=== PATIENT | male | born 1955 | race Caucasian/White ===

== ENCOUNTER 2016-11-28 11:41 | Inpatient (IN) | payer BC, OTHER ==
[2016-11-28] VITALS (11 sets, daily range): BP systolic 96–132; BP diastolic 50–68
[~2016-11-28] VITALS: Ht 176.5 cm; Wt 87.2 kg
[2016-11-28] MEDS ORDERED: ONDANSETRON 4 MG/2 ML (SDV) Z0FRAN ONE (11:42)
[2016-11-28] MEDS ORDERED: LIDOCAINE 1% INJ 20 ML (XYLOCAINE) VIAL ONE (11:56)
[2016-11-28] MEDS ORDERED: LIDOCAINE BOLUS 100 MG/5 ML (IMS) SYR ONE ×2 (11:58→12:06)
[2016-11-28] MEDS ORDERED: NS IV 1000 ML 1,000 ML IV ONE (12:02)
[2016-11-28] MEDS ORDERED: LORazepam INJ 2 MG/ML (ATIVAN) VIAL ONE (12:02)
[2016-11-28] MEDS ORDERED: OCTREOTIDE (FOR BOLUS) 50 MCG/ML SYR (SandoSTATIN) IVP STA (12:02)
[2016-11-28] MEDS ORDERED: ONDANSETRON 4 MG/2 ML (SDV) Z0FRAN IVP ONE (12:15)
[2016-11-28] MEDS ORDERED: PANTOPRAZOLE 40 MG/10 ML (PROTONIX) VIAL IV ONE (12:15)
[2016-11-28 12:33] LABS: BASOPHILS % (AUTO) 0 % (0-10); EOSINOPHILS # (AUTO) 0.2 10^3/uL (0.0-0.3); EOSINOPHILS % (AUTO) 1 % (0-10); LYMPHOCYTES # (AUTO) 3.1 X 10^3 (1.0-4.0); LYMPHOCYTES % (AUTO) 13 % (12-44); MEAN CORPUSCULAR HEMOGLOBIN 34 PG (25-34); MEAN CORPUSCULAR HGB CONC 33 G/DL (32-36); MEAN CORPUSCULAR VOLUME 101 FL (80-99); MEAN PLATELET VOLUME 9.1 FL (7.4-10.4); MONOCYTES # (AUTO) 2.3 X 10^3 (0.0-1.0); MONOCYTES % (AUTO) 10 % (0-12); NEUTROPHILS # (AUTO) 18.6 X 10^3 (1.8-7.8); NEUTROPHILS % (AUTO) 77 % (42-75); PLATELET COUNT 462 10^3/uL (130-400); RED CELL DISTRIBUTION WIDTH 12.6 % (10.0-14.5); WHITE BLOOD COUNT 24.2 10^3/uL (4.3-11.0)
--- NOTE | 2016-11-28 12:39 | Diagnostic Imaging Report ---
EXAMINATION: Chest radiograph, portable AP view. DATE: 11/28/2016 at 1227 hours. INDICATION: 61-year-old male, gastrointestinal bleed. COMPARISON: None. FINDINGS: There is a left-sided venous line with tip overlying the mid to lower SVC. Heart size and mediastinal contours are unremarkable. There is no identified pneumothorax. There is no large right pleural effusion. There is nonspecific left basilar airspace consolidation. IMPRESSION: 1. Nonspecific left basilar airspace consolidation which may relate to atelectasis, infiltrate, and/or small effusion. 2. Left-sided venous line overlying the mid to lower SVC. Dictated by: Dictated on workstation # [id number]
[2016-11-28 12:41] LABS: INR 1.1 (0.8-1.4); PROTHROMBIN TIME PATIENT 13.5 SEC (12.2-14.7)
[2016-11-28 12:52] LABS: ALANINE AMINOTRANSFERASE 32 U/L (0-55); ALBUMIN 2.6 GM/DL (3.2-4.5); ANION GAP 16 MMOL/L (5-14); ASPARTATE AMINO TRANSFERASE 32 U/L (5-34); BILIRUBIN,TOTAL 0.4 MG/DL (0.1-1.0); BLOOD UREA NITROGEN 26 MG/DL (7-18); BUN/CREATININE RATIO 26; CALCIUM 8.9 MG/DL (8.5-10.1); CARBON DIOXIDE 17 MMOL/L (21-32); CHLORIDE 103 MMOL/L (98-107); GFR ESTIMATED > 60; GLUCOSE 257 MG/DL (70-105); LIPASE 33 U/L (8-78); POTASSIUM 3.8 MMOL/L (3.6-5.0); SODIUM 136 MMOL/L (135-145); TOTAL PROTEIN 5.3 GM/DL (6.4-8.2)
[2016-11-28 12:57] LABS: BAND NEUTROPHILS 6 %; LYMPHOCYTES % (MANUAL) 10 %; NEUTROPHILS % (MANUAL) 76 %
--- NOTE | 2016-11-28 12:58 | ED GI ---
General Chief Complaint: Dizziness/Syncope Stated Complaint: upper GI bleed Nursing Triage Note: Upper GI bleed Source of Information: Patient, Spouse Exam Limitations: No Limitations History of Present Illness Time Seen By Provider: 11:47 Initial Comments 61-year-old male patient presents to the emergency department complains of vomiting blood. states patient had an upper endoscopy at [facility] on 11/25/16 and was found to have "perforated stomach ulcers and possible stomach cancer". Has not had follow-up for this. Patient had eggs and ham at 0800 today. Began vomiting blood at approximately one hour prior to arrival. initially reported several "seizures" at home. Denies a history of seizures. States patient initially "felt weird" and became unresponsive. Denies patient shaking but states patient did have a slight "twitch". Denies postictal period. Denies being incontinent of bowel or bladder. Timing/Duration: 1 Hour, Getting Worse Severity/Quality: Severe Activities at Onset: None Allergies and Home Medications Allergies Coded Allergies: No Known Drug Allergies (Unverified , 11/28/16) Review of Systems Constitutional: diaphoresis, No fever, malaise, weakness EENTM: No Symptoms Reported Respiratory: Denies Cough, Denies Shortness of Air Cardiovascular: Denies Chest Pain, Denies Edema, Lightheadedness, Syncope Gastrointestinal: See HPI, Denies Abdomen Distended, Denies Abdominal Pain, Denies Constipated, Denies Diarrhea, Nausea, Denies Rectal Bleeding, Vomiting, Other (hematemesis) Genitourinary: No Symptoms Reported Musculoskeletal: no symptoms reported Skin: no symptoms reported Psychiatric/Neurological: No Symptoms Reported Hematologic/Lymphatic: See HPI All Other Systems Reviewed Negative Unless Noted: Yes (Negative excepted noted.) Past Umzdijb-Frayxz-Cihcek Hx Patient Social History Alcohol Use: Occasionally Uses Recreational Drug Use: No Smoking Status: Former Smoker Recent Foreign Travel: No Contact w/Someone Who Travel: No Surgeries HX Surgeries: Yes (EGD done at [facility] on 11/25/16) Surgeries: Abdominal (splenectomy), Orthopedic (ankle surgery) Respiratory Hx Respiratory Disorders: No Cardiovascular Hx Cardiac Disorders: Yes Cardiac Disorders: High Cholesterol, Hypertension Neurological Hx Neurological Disorders: No Genitourinary Hx Genitourinary Disorders: No Gastrointestinal Hx Gastrointestinal Disorders: Yes (recent diagnosis of stomach ulcer and "possible stomach cancer") Musculoskeletal Hx Musculoskeletal Disorders: Yes (chronic pain) Endocrine Endocrine Disorders: Diabetes, Insulin dep Psychosocial Hx Psychiatric Problems: Yes Behavioral Health Disorders: Sleep Difficulties Reviewed Nursing Assessment Reviewed/Agree w Nursing PMH: Yes Family Medical History Significant Family History: No Pertinent Family Hx Physical Exam Vital Signs VS - Last 72 Hours, by Label 11/28/16 11:47 Temp 95.6 Pulse 116 Resp 8 B/P (MAP) 98/81 Pulse Ox 90 O2 Delivery Room Air Capillary Refill : General Appearance: WD/WN, mild distress HEENT: PERRL/EOMI, pharynx normal Neck: supple, normal inspection Respiratory: lungs clear, normal breath sounds, no respiratory distress Cardiovascular: no edema, no murmur, tachycardia Gastrointestinal: normal bowel sounds, non tender, soft, no organomegaly, No distended, other (well-healed lower midline scar consistent with past surgical history. vomiting bright red blood at the time of exam.) Extremities: no pedal edema, normal capillary refill Neurologic/Psychiatric: alert, normal mood/affect, oriented x 3 Skin: diaphoresis, pallor Lumen: triple Central Line Procedure: betadine prep, sterile drapes applied, sterile dressing applied Position: subclavian (L) Anesthesia: Lidocaine Volume Anesthetic (ccs): 3 Complications: none Post Position: sutured, good blood return, position confirmed w/ CXR Progress/Results/Core Measures Results/Orders Lab Results Laboratory Tests Test 11/28/16 12:23 Range/Units White Blood Count 24.2 H 4.3-11.0 10^3/uL Red Blood Count 2.40 L 4.35-5.85 10^6/uL Hemoglobin 8.1 L 13.3-17.7 G/DL Hematocrit 24 L 40-54 % Mean Corpuscular Volume 101 H 80-99 FL Mean Corpuscular Hemoglobin 34 25-34 PG Mean Corpuscular Hemoglobin Concent 33 32-36 G/DL Red Cell Distribution Width 12.6 10.0-14.5 % Platelet Count 462 H 130-400 10^3/uL Mean Platelet Volume 9.1 7.4-10.4 FL Neutrophils (%) (Auto) 77 H 42-75 % Lymphocytes (%) (Auto) 13 12-44 % Monocytes (%) (Auto) 10 0-12 % Eosinophils (%) (Auto) 1 0-10 % Basophils (%) (Auto) 0 0-10 % Neutrophils # (Auto) 18.6 H 1.8-7.8 X 10^3 Lymphocytes # (Auto) 3.1 1.0-4.0 X 10^3 Monocytes # (Auto) 2.3 H 0.0-1.0 X 10^3 Eosinophils # (Auto) 0.2 0.0-0.3 10^3/uL Basophils # (Auto) 0.0 0.0-0.1 10^3/uL Neutrophils % (Manual) 76 % Lymphocytes % (Manual) 10 % Monocytes % (Manual) 8 % Band Neutrophils 6 % Macrocytosis SLIGHT Prothrombin Time 13.5 12.2-14.7 SEC INR Comment 1.1 0.8-1.4 Activated Partial Thromboplast Time 28 24-35 SEC Sodium Level 136 135-145 MMOL/L Potassium Level 3.8 3.6-5.0 MMOL/L Chloride Level 103 98-107 MMOL/L Carbon Dioxide Level 17 L 21-32 MMOL/L Anion Gap 16 H 5-14 MMOL/L Blood Urea Nitrogen 26 H 7-18 MG/DL Creatinine 1.00 0.60-1.30 MG/DL Estimat Glomerular Filtration Rate > 60 BUN/Creatinine Ratio 26 Glucose Level 257 H 70-105 MG/DL Calcium Level 8.9 8.5-10.1 MG/DL Total Bilirubin 0.4 0.1-1.0 MG/DL Aspartate Amino Transf (AST/SGOT) 32 5-34 U/L Alanine Aminotransferase (ALT/SGPT) 32 0-55 U/L Alkaline Phosphatase 72 40-136 U/L Total Protein 5.3 L 6.4-8.2 GM/DL Albumin 2.6 L 3.2-4.5 GM/DL Lipase 33 8-78 U/L My Orders Orders - WILLAM BRUSH Cbc With Automated Diff (11/28/16 11:52) Comprehensive Metabolic Panel (11/28/16 11:52) Lipase (11/28/16 11:52) Protime With Inr (11/28/16 11:52) Partial Thromboplastin Time (11/28/16 11:52) Ua Culture If Indicated (11/28/16 11:52) Red Cells Leukocytes Reduced (11/28/16 11:52) Type And Screen (11/28/16 11:52) Accucheck Stat ONCE (11/28/16 11:52) Saline Lock/Iv-Start (11/28/16 11:52) Ekg Tracing (11/28/16 11:52) Catheter(Urinary) Insert & Ass 03,15 (11/28/16 11:52) Monitor-Rhythm Ecg Trace Only (11/28/16 11:52) Saline Lock/Iv-Start (11/28/16 11:52) Chest 1 View, Ap/Pa Only (11/28/16 11:52) Ondansetron Injection (Zofran Injectio (11/28/16 12:15) Octreotide Injection (Sandostatin Inje (11/28/16 12:02) Ns Iv 1000 Ml (Sodium Chloride 0.9%) (11/28/16 12:02) Pantoprazole Injection (Protonix Injecti (11/28/16 12:15) Lidocaine 1% Injection (Xylocaine 1% Inj (11/28/16 11:56) Lidocaine 2% Bolus Syringe (Xylocaine Fernando (11/28/16 11:58) Lorazepam Injection (Ativan Injection) (11/28/16 12:02) Lidocaine 2% Bolus Syringe (Xylocaine Fernando (11/28/16 12:06) Manual Differential (11/28/16 12:23) Ct Abdomen/Pelvis W (11/28/16 12:37) Medications Given in ED Current Medications Medications Dose Ordered Sig/Angie Route Start Time Stop Time Status Last Admin Dose Admin Lidocaine HCl 20 ml STK-MED ONCE .ROUTE 11/28/16 11:56 11/28/16 12:03 DC 11/28/16 12:05 20 ML Lidocaine HCl 100 mg STK-MED ONCE .ROUTE 11/28/16 11:58 11/28/16 12:05 DC 11/28/16 12:35 100 MG Lidocaine HCl 100 mg STK-MED ONCE .ROUTE 11/28/16 12:06 11/28/16 12:13 DC 11/28/16 12:00 100 MG Lorazepam 2 mg STK-MED ONCE .ROUTE 11/28/16 12:02 11/28/16 12:08 DC 11/28/16 12:18 2 MG Ondansetron HCl 4 mg ONCE ONCE IVP 11/28/16 12:15 11/28/16 12:16 DC 11/28/16 12:18 4 MG Pantoprazole 80 mg ONCE ONCE IV 11/28/16 12:15 11/28/16 12:16 DC 11/28/16 12:34 80 MG Sodium Chloride 1,000 ml @ 0 mls/hr Q0M ONCE IV 11/28/16 12:02 11/28/16 12:04 DC 11/28/16 12:18 1,000 MLS/HR Vital Signs/I&O Vital Sign - Last 12Hours 11/28/16 11:47 Temp 95.6 Pulse 116 Resp 8 B/P (MAP) 98/81 Pulse Ox 90 O2 Delivery Room Air ECG Initial ECG Impression Date: Nov 28, 2016 Initial ECG Impression Time: 12:42 Initial ECG Rate: 95 Initial ECG Rhythm: Normal Sinus Initial ECG Comparisson: No Previous ECG Available Comment Sinus rhythm. No STEMI or arrhythmia noted. ECG reviewed by Dr. Magen Kaiser. Diagnostic Imaging Diagonstic Imaging: Xray Plain Films/CT/US/NM/MRI: chest Comments FINDINGS: There is a left-sided venous line with tip overlying the mid to lower SVC. Heart size and mediastinal contours are unremarkable. There is no identified pneumothorax. There is no large right pleural effusion. There is nonspecific left basilar airspace consolidation. IMPRESSION: 1. Nonspecific left basilar airspace consolidation which may relate to atelectasis, infiltrate , and/or small effusion. 2. Left-sided venous line overlying the mid to lower SVC. Dictated by: Dictated on workstation # [id number] Reviewed: Reviewed by Me (radiology report reviewed by me) Diagonstic Imaging: CT Plain Films/CT/US/NM/MRI: abdomen, pelvis Comments FINDINGS: There is a small left pleural effusion. There is very mild dependent atelectasis in the right lower lobe. The heart is not enlarged. There is no identified pericardial effusion. The liver is normal in size and contour. There is no identified liver lesion. The main, right, and left portal veins are patent. The gallbladder is unremarkable. There is no intrahepatic or extrahepatic bile duct dilation. The main pancreatic duct is not abnormally dilated. There is a left upper quadrant mixed attenuation mass which does extend near the tail of the pancreas although it is not likely arising from the tail of the pancreas. Along the left lateral abdominal margin on image 21 contiguous with areas of abnormal low attenuation, is more soft tissue attenuation. This likely relates to malignancy. There appears to be a defect in the wall of the greater curvature of the stomach which is contiguous with this mass as illustrated on axial image 17 and adjacent sequential images. There is diffuse abnormal wall thickening of the stomach, particularly involving the mid to distal stomach. This is highly concerning for a gastric malignancy. There is no identified normal-appearing splenic tissue. The above-mentioned lobulated mass in the left upper quadrant does appear to potentially contact the left adrenal gland. The right adrenal gland is unremarkable. There is a low- attenuation right renal lesion on axial image 42 which measures 10 mm in size. This is consistent with a benign cyst based on internal attenuation values. There is a low-attenuation left renal lesion on image 28 measuring 1.5 cm in size which is difficult to definitively characterize. This nears the above- mentioned left upper quadrant mass. The urinary collecting systems are not distended. The urinary bladder is unremarkable in appearance. There is a large volume stool in the rectum which is moderately distended. There is diverticulosis without evidence of acute diverticulitis. The above-mentioned left upper quadrant mass does appear near the splenic flexure of the colon without definite abnormal wall thickening of the colon at this level. The appendix is unremarkable. There is gas projecting outside the margin of the stomach which likely relates to extravasated gastric contents. There is no separately noted free intraperitoneal air. There is no otherwise noted drainable fluid collection. There is no free pelvic fluid. There are atherosclerotic calcifications. There are abnormally enlarged superior mesenteric lymph nodes with an example on axial image 25 which measures 10 mm in short axis. There are subcentimeter short axis retroperitoneal lymph nodes including a left-sided retroperitoneal lymph node on image 32 measuring 10 mm in short axis. There is air within the right common femoral vein which may potentially relate to recent line attempt or venous access. There are limitations of musculoskeletal evaluation relating to lack of coronal and sagittal reformats. There are disc and facet degenerative changes of the lower lumbar spine. There is no identified acute bony abnormality. There is no identified bone lesion concerning for bony metastatic disease. IMPRESSION: CT ABDOMEN AND PELVIS. 1. Diffuse abnormal wall thickening of the stomach, particularly involving the mid to distal stomach. There is a discontinuity of the greater curvature of the stomach with extension of abnormal heterogeneous attenuation and gastric contents outside of the expected location of the gastric lumen. Overall, this is concerning for malignancy perforating the stomach. There is no separately noted free intraperitoneal air or otherwise noted drainable fluid collection. 2. 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 3. Small left pleural effusion. Report given to Willam FELDER at 3:02 p.m. /mac Dictated by: Dictated on workstation # [id number] Reviewed: Reviewed by Me (radiology report reviewed by me. ) Departure Communication Time/Spoke to Admitting Phy: 12:[address] Mejía in ED to evaluate patient. Plan for admission to ICU for transfusion, IV octreotide, IV fluids, and further management. Progress Notes Patient seen, evaluated, and central line placed. Patient was noted to have a syncopal episode during the visit. Patient awoke after approximately 5-10 seconds and was alert and oriented 3. All laboratory findings and diagnostic findings discussed with the patient and family. Patient was give 80 mg of protonix and 50 mcg bolus of octreotide in the ED. No further vomiting or hematemesis noted following medications. Patient and spouse both agree with plan for admission. Patient case discussed with Dr. Kaiser, he agrees with the plan of care. Impression Impression: Primary Impression: Upper GI bleed Additional Impressions: Hypotension due to blood loss History of gastric ulcer Syncopal episodes Qualified Codes: R55 - Syncope and collapse Diabetes mellitus with hyperglycemia Qualified Codes: E11.65 - Type 2 diabetes mellitus with hyperglycemia; Z79.4 - intermediate project manager (current) use of insulin Disposition: ADMITTED INPATIENT Condition: Stable Decision to Admit Reason: Admit from ER (General) Decision to Admit/Date: Nov 28, 2016 Time/Decision to Admit Time: 12:20 Departure-Patient Inst. Referrals: MARKELL JULIAN MD (PCP) Primary Care Physician WILLAM BRUSH Nov 28, 2016 12:58
[2016-11-28] MEDS ORDERED: NS 100 ML (IVPB) BAG IV ONE (13:15)
[2016-11-28] MEDS ORDERED: IOHEXOL 350 MG/ML 100 ML (OMNIPAQUE 350) VIAL IV ONE (13:15)
[2016-11-28 13:57] LABS: BILIRUBIN,URINE NEGATIVE (NEGATIVE); KETONES,URINE NEGATIVE (NEGATIVE); LEUKOCYTE ESTERASE ,URINE NEGATIVE (NEGATIVE); NITRITE,URINE NEGATIVE (NEGATIVE); PH,URINE 6 (5-9); PROTEIN,URINE 2+ (NEGATIVE); UROBILINOGEN,URINE NORMAL (NORMAL)
[2016-11-28] MEDS ORDERED: NS IV 1000 ML 1,000 ML ONE (14:10)
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
--- NOTE | 2016-11-28 15:03 | Diagnostic Imaging Report ---
PROCEDURE: CT abdomen and pelvis with contrast. TECHNIQUE: Multiple contiguous axial images were obtained through the abdomen and pelvis after administration of intravenous contrast. DATE: November 28, 2016. COMPARISON: None. INDICATION: 61-year-old male, gastrointestinal bleed. Nausea, vomiting, diarrhea. 5 days of black stools. FINDINGS: There is a small left pleural effusion. There is very mild dependent atelectasis in the right lower lobe. The heart is not enlarged. There is no identified pericardial effusion. The liver is normal in size and contour. There is no identified liver lesion. The main, right, and left portal veins are patent. The gallbladder is unremarkable. There is no intrahepatic or extrahepatic bile duct dilation. The main pancreatic duct is not abnormally dilated. There is a left upper quadrant mixed attenuation mass which does extend near the tail of the pancreas although it is not likely arising from the tail of the pancreas. Along the left lateral abdominal margin on image 21 contiguous with areas of abnormal low attenuation, is more soft tissue attenuation. This likely relates to malignancy. There appears to be a defect in the wall of the greater curvature of the stomach which is contiguous with this mass as illustrated on axial image 17 and adjacent sequential images. There is diffuse abnormal wall thickening of the stomach, particularly involving the mid to distal stomach. This is highly concerning for a gastric malignancy. There is no identified normal-appearing splenic tissue. The above-mentioned lobulated mass in the left upper quadrant does appear to potentially contact the left adrenal gland. The right adrenal gland is unremarkable. There is a low-attenuation right renal lesion on axial image 42 which measures 10 mm in size. This is consistent with a benign cyst based on internal attenuation values. There is a low-attenuation left renal lesion on image 28 measuring 1.5 cm in size which is difficult to definitively characterize. This nears the above-mentioned left upper quadrant mass. The urinary collecting systems are not distended. The urinary bladder is unremarkable in appearance. There is a large volume stool in the rectum which is moderately distended. There is diverticulosis without evidence of acute diverticulitis. The above-mentioned left upper quadrant mass does appear near the splenic flexure of the colon without definite abnormal wall thickening of the colon at this level. The appendix is unremarkable. There is gas projecting outside the margin of the stomach which likely relates to extravasated gastric contents. There is no separately noted free intraperitoneal air. There is no otherwise noted drainable fluid collection. There is no free pelvic fluid. There are atherosclerotic calcifications. There are abnormally enlarged superior mesenteric lymph nodes with an example on axial image 25 which measures 10 mm in short axis. There are subcentimeter short axis retroperitoneal lymph nodes including a left-sided retroperitoneal lymph node on image 32 measuring 10 mm in short axis. There is air within the right common femoral vein which may potentially relate to recent line attempt or venous access. There are limitations of musculoskeletal evaluation relating to lack of coronal and sagittal reformats. There are disc and facet degenerative changes of the lower lumbar spine. There is no identified acute bony abnormality. There is no identified bone lesion concerning for bony metastatic disease. IMPRESSION: CT ABDOMEN AND PELVIS. 1. Diffuse abnormal wall thickening of the stomach, particularly involving the mid to distal stomach. There is a discontinuity of the greater curvature of the stomach with extension of abnormal heterogeneous attenuation and gastric contents outside of the expected location of the gastric lumen. Overall, this is concerning for malignancy perforating the stomach. There is no separately noted free intraperitoneal air or otherwise noted drainable fluid collection. 2. 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 3. Small left pleural effusion. Report given to Yael FELDER at 3:02 p.m. 11/28/2016/mac Dictated by: Dictated on workstation # [id number]
[2016-11-28] MEDS ORDERED: fentaNYL INJECTION 100 MCG/2 ML AMP IV PRN (15:45)
[2016-11-28] MEDS ORDERED: FAMOTIDINE 20 MG (PEPCID) TABLET PO PRN (15:45)
[2016-11-28] MEDS ORDERED: ONDANSETRON 4 MG/2 ML (SDV) Z0FRAN IVP PRN (15:45)
[2016-11-28] MEDS: NS IV 1000 ML 1,000 ML IV SCH ×2 (16:24→23:13)
[2016-11-28] MEDS: OCTREOTIDE INJECTION 500 MCG in NS (IVPB) 99 ML IV SCH (16:39)
[2016-11-28] MEDS: PANTOPRAZOLE 40 MG/10 ML (PROTONIX) VIAL IV SCH (16:44)
[2016-11-28] MEDS: SUCRALFATE 1 GM (CARAFATE) TAB PO SCH ×2 (16:44→21:33)
[2016-11-28] MEDS: LORazepam INJ 2 MG/ML (ATIVAN) VIAL IVP PRN (21:33)
[2016-11-28] MEDS: CEFEPIME INJECTION 2,000 MG in NS (IVPB) 50 ML IV SCH (21:34)
[2016-11-29] VITALS (25 sets, daily range): BP systolic 97–137; BP diastolic 62–94
[2016-11-29] MEDS: OCTREOTIDE INJECTION 500 MCG in NS (IVPB) 99 ML IV SCH ×3 (01:46→21:34)
[2016-11-29] MEDS: PANTOPRAZOLE 40 MG/10 ML (PROTONIX) VIAL IV SCH ×2 (04:09→16:33)
--- NOTE | 2016-11-29 05:31 | Pulmonary Consultation ---
History of Present Illness History of Present Illness Date of Consultation 11/29/16 05:26 Time Seen by Provider: 05:26 Date of Admission History of Present Illness 61yo with recent hx of hospitalization at [facility] secondary to GIB admitted to ICU from ED secondary to acute syncope and copious amounts of hematemesis. Since admission pt has received [address] Mejía is currently following. Pt has had black tarry stools. CT of abd/pelvis is suggestive of metastatic cancer. Pt did have bx done at [facility] via EGD and EUS. I am consulted for pulm/cc management. Allergies and Home Medications Allergies Coded Allergies: No Known Drug Allergies (Unverified , 11/28/16) Home Medications Docusate Sodium 100 Mg Capsule, 200 MG PO DAILY PRN for CONSTIPATION-1ST LINE, ( Reported) Empagliflozin/Linagliptin 1 Each Tablet, 1 TAB PO DAILY, (Reported) Glipizide 10 Mg Tab.er.24, 10 MG PO DAILY, (Reported) Insulin Degludec 100 Unit/1 Ml Insuln.pen, 10 UNITS SQ DAILY, (Reported) Lisinopril/Hydrochlorothiazide 1 Each Tablet, 1 TAB PO DAILY, (Reported) Metformin HCl 1,000 Mg Tablet, 1,000 MG PO BID, (Reported) Multivitamin 1 Each Tablet, 1 TAB PO DAILY, (Reported) Pantoprazole Sodium 40 Mg Tablet.dr, 40 MG PO BID, (Reported) Pravastatin Sodium 40 Mg Tablet, 40 MG PO HS, (Reported) Sucralfate 1 Gm Tablet, 1 GM PO QIDACHS, (Reported) Tramadol HCl 300 Mg Tab.er.24h, 300 MG PO DAILY, (Reported) Zolpidem Tartrate 10 Mg Tablet, 10 MG PO HS, (Reported) Past Reimvbb-Qilrnv-Ydrbrj Hx Patient Social History Alcohol Use: Occasionally Uses Recreational Drug Use: Yes Drug of Choice: marajuana Smoking Status: Former Smoker Type Used: Cigarettes 2nd Hand Smoke Exposure: No Recent Foreign Travel: No Contact w/Someone Who Travel: No Recent Infectious Disease Expo: No Recent Hopitalizations: Yes ([facility] DUE TO DARK TARRY STOOLS LAST TUESDAY) Physical Abuse Screen: No Sexual Abuse: No Immunizations Up To Date PED Vaccines UTD: No Seasonal Allergies Seasonal Allergies: No Surgeries HX Surgeries: Yes (EGD done at [facility] on 11/25/16) Surgeries: Abdominal (splenectomy), Orthopedic (ankle surgery) Respiratory Hx Respiratory Disorders: No Cardiovascular Hx Cardiac Disorders: Yes Cardiac Disorders: High Cholesterol, Hypertension Neurological Hx Neurological Disorders: No Genitourinary Hx Genitourinary Disorders: No Gastrointestinal Hx Gastrointestinal Disorders: Yes (recent diagnosis of stomach ulcer and "possible stomach cancer") Gastrointestinal Disorders: Ulcer Musculoskeletal Hx Musculoskeletal Disorders: Yes (chronic pain) Musculoskeletal Disorders: Chronic Back Pain Endocrine Endocrine Disorders: Diabetes, Insulin dep Psychosocial Hx Psychiatric Problems: Yes Behavioral Health Disorders: Sleep Difficulties Blood Transfusions Adverse Reaction to a Blood Tr: No Reviewed Nursing Assessment Reviewed/Agree w Nursing PMH: Yes Family Medical History Significant Family History: No Pertinent Family Hx Family Medial History: Drug abuse G8 SISTER, Onset:50's - 60 ( of a drug overdose) Staph infection 19 MOTHER, Onset:60 years & older (staph infection of the bone) Review of Systems Date Seen by Provider: Dec 22, 2016 Time Seen by Provider: 06:54 Constitutional: Sweats, Weakness, Malaise, No: Fever, Chills, Other Eyes: No: Pain, Vision change, Conjunctivae inflammation, Eyelid inflammation, Other, Redness ENT: No: Ear pain, Ear discharge, Nose pain, Nose discharge, Nose congestion, Mouth pain, Mouth swelling, Throat pain, Throat swelling, Other Respiratory: Cough, Dry, SOB with excertion, No: Shortness of breath, Wheezing , Hemoptysis, Pleuritic Pain, Sputum, Wheezing, Other Cardiovascular: Palpitations, Paroxysmal Noc. Dyspnea, Lt Headedness Gastrointestinal: Vomiting, Abdominal Pain, Melena, No: Hematochezia Genitourinary: No Dysuria, No Frequency, No Incontinence, No Hematuria, No Retention, No Other Musculoskeletal: No: other, neck pain, shoulder pain, arm pain, back pain, hand pain, leg pain, foot pain Neurological: Weakness, Incoordination, Change in speech, Confusion Exam Exam Vital Signs Date Time Temp Pulse Resp B/P (MAP) Pulse Ox O2 Delivery O2 Flow Rate FiO2 11/29/16 04:58 99.8 86 20 109/69 98 Nasal Cannula 2.00 11/29/16 04:11 100.1 Nasal Cannula 2.00 11/29/16 04:00 96 Nasal Cannula 2.00 11/29/16 03:30 100.1 94 22 114/68 96 Nasal Cannula 2.00 11/29/16 03:11 99.3 90 118/77 97 Nasal Cannula 2.00 11/29/16 03:00 101 16 118/77 96 Nasal Cannula 2.00 11/29/16 02:58 99.3 97 22 114/63 99 Nasal Cannula 2.00 11/29/16 02:00 89 23 114/63 97 Nasal Cannula 2.00 11/29/16 01:25 99.5 92 24 115/69 96 Nasal Cannula 2.00 11/29/16 01:07 99.4 93 23 119/80 96 Nasal Cannula 2.00 11/29/16 01:00 96 11/29/16 01:00 96 13 119/80 98 Nasal Cannula 2.00 11/29/16 00:00 86 22 97/62 96 Nasal Cannula 2.00 11/29/16 00:00 96 Nasal Cannula 2.00 11/28/16 23:54 98.9 Room Air 11/28/16 23:00 91 19 99/50 91 Room Air 11/28/16 22:00 93 13 110/66 90 Room Air 11/28/16 21:00 84 21 115/68 97 Room Air 11/28/16 20:00 93 Room Air 11/28/16 20:00 99 24 132/66 95 Room Air 11/28/16 19:42 98.6 11/28/16 19:00 88 31 96/63 96 Room Air 11/28/16 19:00 90 11/28/16 18:00 85 15 110/66 93 Room Air 11/28/16 17:00 88 11 100/66 97 Room Air 11/28/16 16:53 98.6 84 16 108/66 96 Room Air 11/28/16 16:01 76 11/28/16 15:45 Room Air 11/28/16 15:35 98.6 75 11 104/62 94 Room Air 11/28/16 15:18 97.7 81 15 97 Room Air 11/28/16 15:00 97.7 82 15 106/59 94 Room Air 11/28/16 14:40 97.5 81 8 96/59 97 Room Air 11/28/16 11:47 95.6 116 8 98/81 90 Room Air I & O 11/29/16 07:00 Intake Total 5470 ml Balance 5470 ml General Appearance: No Apparent Distress, Anxious HEENT: PERRL/EOMI Neck: Normal Inspection, Non Tender, Supple Cardiovascular: Regular Rate, Rhythm, No Edema Capillary Refill: Greater Than 3 Seconds Gastrointestinal: normal bowel sounds, non tender, soft, no organomegaly, No distended, other (well-healed lower midline scar consistent with past surgical history. vomiting bright red blood at the time of exam.) Neurologic/Psychiatric: Alert, Oriented x3 Skin: Normal Color Lymphatic: No Adenopathy Results Lab Laboratory Tests 11/28/16 12:23 11/28/16 18:47 11/29/16 00:35 Assessment/Plan Assessment/Plan -GIB s/p EGD at [facility] with bx pending -CT is suggestive of metastatic cancer -s/p 4units of PRBC -monitor H&H Small left pleural effusion -probably secondary to GI pathology Sepsis probably secondary to GI -improving with cefepime -trevino cultures pending -repeat labs 254 Clinical Quality Measures DVT/VTE Risk/Contraindication: Risk Factor Score Per Nursin RFS Level Per Nursing on Admit: 2=Moderate SEAN FELIZ DO Nov 29, 2016 05:31
[2016-11-29] MEDS ORDERED: KCL 20 MEQ TAB (K-DUR) PO SCH (06:00)
[2016-11-29] MEDS ORDERED: POTASSIUM CL 10MEQ/50ML IVPB 50 ML IV SCH (06:00)
[2016-11-29] MEDS ORDERED: MAGNESIUM 1 GM/100 ML IVPB 100 ML IV SCH (06:00)
[2016-11-29] MEDS: NS IV 1000 ML 1,000 ML IV SCH ×2 (06:03→09:21)
[2016-11-29] MEDS: SUCRALFATE 1 GM (CARAFATE) TAB PO SCH ×4 (06:17→21:34)
[2016-11-29 06:31] LABS: BASOPHILS # (AUTO) 0.1 10^3/uL (0.0-0.1); BASOPHILS % (AUTO) 0 % (0-10); EOSINOPHILS # (AUTO) 0.2 10^3/uL (0.0-0.3); EOSINOPHILS % (AUTO) 2 % (0-10); LYMPHOCYTES % (AUTO) 14 % (12-44); MEAN CORPUSCULAR HGB CONC 34 G/DL (32-36); MEAN CORPUSCULAR VOLUME 95 FL (80-99); MEAN PLATELET VOLUME 9.1 FL (7.4-10.4); MONOCYTES # (AUTO) 2.5 X 10^3 (0.0-1.0); MONOCYTES % (AUTO) 18 % (0-12); NEUTROPHILS # (AUTO) 9.2 X 10^3 (1.8-7.8); NEUTROPHILS % (AUTO) 66 % (42-75); PLATELET COUNT 355 10^3/uL (130-400); RED BLOOD COUNT 3.17 10^6/uL (4.35-5.85); RED CELL DISTRIBUTION WIDTH 14.2 % (10.0-14.5)
[2016-11-29 06:32] LABS: MEAN CORPUSCULAR HEMOGLOBIN 32 PG (25-34)
[2016-11-29 06:54] LABS: ALANINE AMINOTRANSFERASE 27 U/L (0-55); ALBUMIN 2.6 GM/DL (3.2-4.5); ANION GAP 8 MMOL/L (5-14); ASPARTATE AMINO TRANSFERASE 28 U/L (5-34); BILIRUBIN,TOTAL 0.9 MG/DL (0.1-1.0); BLOOD UREA NITROGEN 36 MG/DL (7-18); BUN/CREATININE RATIO 48; CALCIUM 8.2 MG/DL (8.5-10.1); CARBON DIOXIDE 23 MMOL/L (21-32); CHLORIDE 105 MMOL/L (98-107); CREATININE SERUM 0.75 MG/DL (0.60-1.30); GFR ESTIMATED > 60; GLUCOSE 132 MG/DL (70-105); MAGNESIUM 1.3 MG/DL (1.8-2.4); PHOSPHORUS 2.5 MG/DL (2.3-4.7); POTASSIUM 4.3 MMOL/L (3.6-5.0); SODIUM 136 MMOL/L (135-145); TOTAL PROTEIN 5.3 GM/DL (6.4-8.2)
[2016-11-29] MEDS: MAGNESIUM 1 GM/100 ML IVPB 100 ML IV SCH ×4 (07:03→10:17)
[2016-11-29] MEDS: CEFEPIME INJECTION 2,000 MG in NS (IVPB) 50 ML IV SCH ×2 (08:18→21:34)
--- NOTE | 2016-11-29 08:50 | Diagnostic Imaging Report ---
EXAM: CHEST 1 VIEW, AP/PA ONLY INDICATION: Hypotension. GI bleed. COMPARISON: Chest radiograph 11/28/2016. FINDINGS: Normal heart size and pulmonary vascularity. Interval improvement of the consolidation in the left lung base. No new dense consolidation, pleural effusion or pneumothorax. Left PICC tip mid SVC. IMPRESSION: Improving left basilar consolidation. Dictated by: Dictated on workstation # [id number]
[2016-11-29] MEDS ORDERED: DICL75TA2 PO (09:47)
[2016-11-29] MEDS ORDERED: SUCR1TAB PO (09:47)
[2016-11-29] MEDS ORDERED: EMPA1TAB PO (09:47)
[2016-11-29] MEDS ORDERED: METF1000 PO (09:47)
[2016-11-29] MEDS ORDERED: PANT40TA3 PO (09:47)
[2016-11-29] MEDS ORDERED: TRAM300T17 PO (09:47)
[2016-11-29] MEDS ORDERED: GLIP-197 PO (09:47)
[2016-11-29] MEDS ORDERED: INSU100I32 SQ (09:47)
[2016-11-29] MEDS ORDERED: LISI1TAB10 PO (09:47)
[2016-11-29] MEDS ORDERED: PRAV40TA2 PO (09:47)
[2016-11-29] MEDS ORDERED: ZOLP10TA5 PO (09:47)
[2016-11-29] MEDS ORDERED: MULT1TAB69 PO (09:50)
[2016-11-29] MEDS ORDERED: DOCU100C37 PO (09:50)
[2016-11-29] MEDS: inSUlin (REGULAR) HUMAN 1 UNIT/0.01 ML (CHARGE PER UNIT) SC SCH ×3 (11:59→21:35)
--- NOTE | 2016-11-29 17:52 | Progress Note (SOAP) ---
Subjective Date Seen by Provider: Nov 29, 2016 Time Seen by Provider: 17:45 Subjective/Events-last exam doing well. no clinical bleed. HD stable. CT abd showed metastatic lesions. Objective Exam Vital Signs Date Time Temp Pulse Resp B/P (MAP) Pulse Ox O2 Delivery O2 Flow Rate FiO2 11/29/16 16:38 98.2 80 14 124/78 96 Room Air 11/29/16 16:36 95 Room Air 11/29/16 16:00 Nasal Cannula 2.50 11/29/16 13:00 77 11/29/16 11:35 95 Nasal Cannula 2.00 11/29/16 11:34 99.6 84 13 131/74 95 Nasal Cannula 2.00 11/29/16 08:21 99.1 Nasal Cannula 2.00 11/29/16 08:00 96 Nasal Cannula 2.00 11/29/16 07:00 99 11/29/16 06:00 92 18 134/69 96 Nasal Cannula 2.00 11/29/16 05:00 87 36 115/71 97 Nasal Cannula 2.00 11/29/16 04:58 99.8 86 20 109/69 98 Nasal Cannula 2.00 11/29/16 04:11 100.1 Nasal Cannula 2.00 11/29/16 04:00 96 Nasal Cannula 2.00 11/29/16 04:00 89 35 109/69 97 Nasal Cannula 2.00 11/29/16 03:30 100.1 94 22 114/68 96 Nasal Cannula 2.00 11/29/16 03:11 99.3 90 118/77 97 Nasal Cannula 2.00 11/29/16 03:00 101 16 118/77 96 Nasal Cannula 2.00 11/29/16 02:58 99.3 97 22 114/63 99 Nasal Cannula 2.00 11/29/16 02:00 89 23 114/63 97 Nasal Cannula 2.00 11/29/16 01:25 99.5 92 24 115/69 96 Nasal Cannula 2.00 11/29/16 01:07 99.4 93 23 119/80 96 Nasal Cannula 2.00 11/29/16 01:00 96 11/29/16 01:00 96 13 119/80 98 Nasal Cannula 2.00 11/29/16 00:00 86 22 97/62 96 Nasal Cannula 2.00 11/29/16 00:00 96 Nasal Cannula 2.00 11/28/16 23:54 98.9 Room Air 11/28/16 23:00 91 19 99/50 91 Room Air 11/28/16 22:00 93 13 110/66 90 Room Air 11/28/16 21:00 84 21 115/68 97 Room Air 11/28/16 20:00 93 Room Air 11/28/16 20:00 99 24 132/66 95 Room Air 11/28/16 19:42 98.6 11/28/16 19:00 88 31 96/63 96 Room Air 11/28/16 19:00 90 11/28/16 18:00 85 15 110/66 93 Room Air I & O 11/29/16 07:00 Intake Total 5470 ml Output Total 1000 ml Balance 4470 ml Capillary Refill : Greater Than 3 Seconds General Appearance: No Apparent Distress HEENT: PERRL/EOMI Neck: Full Range of Motion Respiratory: Chest Non Tender, Lungs Clear, Normal Breath Sounds Cardiovascular: Regular Rate, Rhythm Gastrointestinal: normal bowel sounds, non tender, soft Extremity: Normal Capillary Refill Neurologic/Psychiatric: Alert, Oriented x3 Skin: Normal Color Lymphatic: No Adenopathy Results Lab Laboratory Tests 11/28/16 18:47: Hemoglobin 9.0L, Hematocrit 26L, Glucometer 162H 11/29/16 00:35: Hemoglobin 8.0L, Hematocrit 24L 11/29/16 00:36: Glucometer 102 11/29/16 06:24: Hemoglobin 10.3#L, Hematocrit 30L, White Blood Count 14.0H, Red Blood Count 3.17L, Mean Corpuscular Volume 95, Mean Corpuscular Hemoglobin 32, Mean Corpuscular Hemoglobin Concent 34, Red Cell Distribution Width 14.2, Platelet Count 355, Mean Platelet Volume 9.1, Neutrophils (%) (Auto) 66, Lymphocytes (%) (Auto) 14, Monocytes (%) (Auto) 18H, Eosinophils (%) (Auto) 2, Basophils (%) ( Auto) 0, Neutrophils # (Auto) 9.2H, Lymphocytes # (Auto) 2.0, Monocytes # (Auto ) 2.5H, Eosinophils # (Auto) 0.2, Basophils # (Auto) 0.1, Sodium Level 136, Potassium Level 4.3, Chloride Level 105, Carbon Dioxide Level 23, Anion Gap 8, Blood Urea Nitrogen 36H, Creatinine 0.75, Estimat Glomerular Filtration Rate > 60, BUN/Creatinine Ratio 48, Glucose Level 132H, Lactic Acid Level 0.73, Calcium Level 8.2L, Phosphorus Level 2.5, Magnesium Level 1.3L, Total Bilirubin 0.9, Aspartate Amino Transf (AST/SGOT) 28, Alanine Aminotransferase (ALT/SGPT) 27, Alkaline Phosphatase 50, Total Protein 5.3L, Albumin 2.6L 11/29/16 11:42: Glucometer 273H 11/29/16 12:40: Hemoglobin 10.1L, Hematocrit 29L 11/29/16 13:06: Lab Scanned Report Transfusion Reaction Form 11/29/16 16:33: Glucometer 170H Assessment/Plan Assessment/Plan Assess & Plan/Chief Complaint gastric bleed secondary multiple perforated/erosive ulcers. stable and tolerating diet. continue PPI and octreotide gtt. advance diet. transfer to floor. Clinical Quality Measures DVT/VTE Risk/Contraindication: Risk Factor Score Per Nursin RFS Level Per Nursing on Admit: 2=Moderate MARISA BUI MD Nov 29, 2016 5:52 pm
[2016-11-29] MEDS ORDERED: ACETAMINOPHEN 325 MG TABLET/CAPLET (TYLENOL) PO PRN (21:30)
[2016-11-29] MEDS: LORazepam INJ 2 MG/ML (ATIVAN) VIAL IVP PRN (21:48)
[2016-11-30 00:20] VITALS: BP 113/66
[2016-11-30] MEDS: NS IV 1000 ML 1,000 ML IV SCH ×2 (03:55→08:45)
[2016-11-30] MEDS: PANTOPRAZOLE 40 MG/10 ML (PROTONIX) VIAL IV SCH (03:56)
[2016-11-30 04:00] VITALS: BP 101/58
[2016-11-30] MEDS: SUCRALFATE 1 GM (CARAFATE) TAB PO SCH ×2 (05:35→12:53)
[2016-11-30] MEDS: inSUlin (REGULAR) HUMAN 1 UNIT/0.01 ML (CHARGE PER UNIT) SC SCH ×2 (05:35→12:53)
[2016-11-30 08:00] VITALS: BP 138/77
--- NOTE | 2016-11-30 08:22 | Pulmonary Progress Note ---
Subjective Time Seen by Provider: 08:17 Subjective/Events-last exam PT is still running fevers. Exam Exam Vital Signs Date Time Temp Pulse Resp B/P (MAP) Pulse Ox O2 Delivery O2 Flow Rate FiO2 11/30/16 08:00 99.4 81 20 138/77 95 Room Air 11/30/16 04:00 98.1 66 18 101/58 95 Room Air 11/30/16 00:20 99.5 72 16 113/66 94 Room Air 11/29/16 22:05 100.2 11/29/16 21:50 100.7 11/29/16 21:35 101.2 11/29/16 21:00 101.1 11/29/16 20:00 95 Room Air 11/29/16 19:05 100.5 82 20 118/71 93 Room Air 11/29/16 17:00 81 20 119/64 96 Room Air 11/29/16 16:38 98.2 80 14 124/78 96 Room Air 11/29/16 16:36 95 Room Air 11/29/16 16:00 Nasal Cannula 2.50 11/29/16 16:00 76 11 97 Nasal Cannula 2.00 11/29/16 15:00 82 18 119/74 94 Nasal Cannula 2.00 11/29/16 14:00 84 21 126/75 97 Nasal Cannula 2.00 11/29/16 13:00 95 21 121/74 92 Nasal Cannula 2.00 11/29/16 13:00 77 11/29/16 12:00 82 12 118/79 98 Nasal Cannula 2.00 11/29/16 11:35 95 Nasal Cannula 2.00 11/29/16 11:34 99.6 84 13 131/74 95 Nasal Cannula 2.00 11/29/16 10:00 87 118/74 95 Nasal Cannula 2.00 11/29/16 09:00 95 20 132/76 96 Nasal Cannula 2.00 11/29/16 08:21 99.1 Nasal Cannula 2.00 I & O 11/30/16 07:00 Intake Total 6700 ml Output Total 750 ml Balance 5950 ml General Appearance: No Apparent Distress, Anxious HEENT: PERRL/EOMI Neck: Normal Inspection, Non Tender, Supple Respiratory: Chest Non Tender, Lungs Clear, Normal Breath Sounds Cardiovascular: Regular Rate, Rhythm, No Edema Capillary Refill: Greater Than 3 Seconds Gastrointestinal: normal bowel sounds, non tender, soft, no organomegaly, No distended, other (well-healed lower midline scar consistent with past surgical history. vomiting bright red blood at the time of exam.) Extremity: Normal Capillary Refill Neurologic/Psychiatric: Alert, Oriented x3 Skin: Normal Color Lymphatic: No Adenopathy Results Lab Laboratory Tests 11/28/16 12:23 11/28/16 18:47 11/29/16 00:35 11/29/16 06:24 11/29/16 12:40 11/30/16 00:35 Assessment/Plan Assessment/Plan -GIB s/p EGD at [facility] with bx pending -CT is suggestive of metastatic cancer -s/p 4units of PRBC -monitor H&H Small left pleural effusion -probably secondary to GI pathology Sepsis probably secondary to GI -improving with cefepime -trevino cultures pending -repeat labs 233 Clinical Quality Measures DVT/VTE Risk/Contraindication: Risk Factor Score Per Nursin RFS Level Per Nursing on Admit: 2=Moderate SEAN FELIZ DO Nov 30, 2016 08:22
[2016-11-30] MEDS: OCTREOTIDE INJECTION 500 MCG in NS (IVPB) 99 ML IV SCH (08:44)
[2016-11-30] MEDS: CEFEPIME INJECTION 2,000 MG in NS (IVPB) 50 ML IV SCH (08:47)
[2016-11-30 09:55] LABS: BILIRUBIN,URINE NEGATIVE (NEGATIVE); KETONES,URINE NEGATIVE (NEGATIVE); LEUKOCYTE ESTERASE ,URINE NEGATIVE (NEGATIVE); NITRITE,URINE NEGATIVE (NEGATIVE); PH,URINE 6.5 (5-9); PROTEIN,URINE NEGATIVE (NEGATIVE); UROBILINOGEN,URINE 1 MG/DL (NORMAL)
[2016-11-30 10:19] LABS: SQUAMOUS EPITHELIAL CELL,UR RARE /HPF
[2016-11-30 12:00] VITALS: BP 144/77
--- NOTE | 2016-11-30 12:41 | Progress Note-Hospitalist ---
Standard Progress Note Progress Notes/Assess & Plan Date Seen 11/30/16 Time Seen by Provider: 12:36 Assess & Plan/Chief Complaint The patient is a 61-year-old white male who had presented to the emergency room on Tuesday with an acute upper GI bleed. This has been controlled. He had had endoscopy in [place] by a Dr. Amos who is a gum machine filler with Dr. Ingram. Dr. Martin's nurse practitioner called me this morning and relayed information that they had gotten from [place] relative to biopsies. These revealed only atypia although other analysis is yet pending. The patient has a stable blood count at 10. I have discussed him this morning with Dr. Mejía and he will be discharged. Physical exam: The patient is alert and oriented. Lungs are clear to auscultation. CV is regular without murmur. Abdomen is soft and there is no pain to palpation. Extremities show no pedal edema. Comment: The patient's showed me from those from the endoscopy last week which show multiple ulcers. Impression: Recurrent upper GI bleeding. 2.multiple gastric and duodenal ulcers. Plan: Discharge today. SEE discharge sequence for instructions and medications. Labs Laboratory Tests 11/28/16 18:47 11/29/16 00:35 11/29/16 06:24 11/29/16 12:40 11/30/16 00:35 11/30/16 08:22 Final Diagnosis 1.upper GI bleed. 2.anemia and hypotension secondary to number 1. 3.multiple upper GI ulcerations as demonstrated on recent endoscopy JULIEN GROSS MD Nov 30, 2016 12:41
--- NOTE | 2016-11-30 12:44 | Discharge Instructions ---
Discharge Instructions Patient Instructions Goal/Follow Up Appt: Follow-up with Dr. Amos in [place] after notified that the biopsy materials are complete Patient Instructions: Medications as listed in the discharge instructions. Observe stools for black color. Modest physical activity at present Begin feedings with soft texture and advance as tolerated Return to The [facility] For: Evidence of repeat bleeding Activity & Diet Discharge Diet: Eat Small Frequent Meals, ADA Diet Activity as Tolerated: Yes JULIEN GROSS MD Nov 30, 2016 12:44
--- NOTE | 2016-11-30 13:42 | Progress Note (SOAP) ---
Subjective Date Seen by Provider: Nov 30, 2016 Time Seen by Provider: 13:00 Subjective/Events-last exam doing well. tolerating diet. having normal BM's. no signs clinical bleeding. on protonix BID and carafate. Objective Exam Vital Signs Date Time Temp Pulse Resp B/P (MAP) Pulse Ox O2 Delivery O2 Flow Rate FiO2 11/30/16 09:00 95 Room Air 11/30/16 08:00 99.4 81 20 138/77 95 Room Air 11/30/16 04:00 98.1 66 18 101/58 95 Room Air 11/30/16 00:20 99.5 72 16 113/66 94 Room Air 11/29/16 22:05 100.2 11/29/16 21:50 100.7 11/29/16 21:35 101.2 11/29/16 21:00 101.1 11/29/16 20:00 95 Room Air 11/29/16 19:05 100.5 82 20 118/71 93 Room Air 11/29/16 17:00 81 20 119/64 96 Room Air 11/29/16 16:38 98.2 80 14 124/78 96 Room Air 11/29/16 16:36 95 Room Air 11/29/16 16:00 Nasal Cannula 2.50 11/29/16 16:00 76 11 97 Nasal Cannula 2.00 11/29/16 15:00 82 18 119/74 94 Nasal Cannula 2.00 11/29/16 14:00 84 21 126/75 97 Nasal Cannula 2.00 I & O 11/30/16 07:00 Intake Total 6700 ml Output Total 750 ml Balance 5950 ml Capillary Refill : Greater Than 3 Seconds General Appearance: No Apparent Distress HEENT: PERRL/EOMI Neck: Full Range of Motion Respiratory: Chest Non Tender, Lungs Clear, Normal Breath Sounds Cardiovascular: Regular Rate, Rhythm Gastrointestinal: normal bowel sounds, non tender, soft Extremity: Normal Capillary Refill Neurologic/Psychiatric: Alert, Oriented x3 Skin: Normal Color Lymphatic: No Adenopathy Results Lab Laboratory Tests 11/29/16 16:33: Glucometer 170H 11/29/16 20:03: Glucometer 136H 11/30/16 00:35: Hemoglobin 10.0L, Hematocrit 29L 11/30/16 05:15: Glucometer 142H 11/30/16 08:22: Hemoglobin 10.2L, Hematocrit 30L 11/30/16 08:53: Lactic Acid Level 0.75 11/30/16 09:35: Urine Color YELLOW, Urine Clarity CLEAR, Urine pH 6.5, Urine Specific [place] 1.010L, Urine Protein NEGATIVE, Urine Glucose (UA) 4+H, Urine Ketones NEGATIVE, Urine Nitrite NEGATIVE, Urine Bilirubin NEGATIVE, Urine Urobilinogen 1, Urine Leukocyte Esterase NEGATIVE, Urine RBC (Auto) NEGATIVE, Urine RBC NONE, Urine WBC NONE, Urine Squamous Epithelial Cells RARE, Urine Crystals NONE, Urine Bacteria NEGATIVE, Urine Casts NONE, Urine Mucus NEGATIVE, Urine Culture Indicated NO 11/30/16 10:56: Glucometer 141H Assessment/Plan Assessment/Plan Assess & Plan/Chief Complaint gastric bleed secondary multiple perforated/erosive ulcers. stable and tolerating diet. continue PPI and octreotide gtt. no signs of clinical bleeding with stage Hb. home soon with continuation PPI BID and carafate. has appt to f/u with physicians at [place]. Clinical Quality Measures DVT/VTE Risk/Contraindication: Risk Factor Score Per Nursin RFS Level Per Nursing on Admit: 2=Moderate MARISA BUI MD Nov 30, 2016 1:41 pm
[2016-11-30 16:18] VITALS: BP 144/77
--- OUTSIDE RECORDS SUMMARY | 2016-12-08 16:58 | XMS REPORT | Continuity of Care Document ---
Author Author [facility] Organization [facility] Address Unknown Phone Unavailable Allergies Active Description Code Type Severity Reaction Onset Reported/Identified Relationship to Patient Clinical Status Yes No Known Drug Allergies [id number] Drug Allergy Unknown N/ A 11/28/2016 Medications Problems Date Dx Coded Attending Type Code Diagnosis Diagnosed By 11/28/2016 Ot 784.2 SWELLING IN HEAD NECK 11/28/2016 Ot 784.2 SWELLING IN HEAD NECK 11/28/2016 HERMINIO BIU, RENAE Copeland Ot 714.9 INFLAMM POLYARTHROP NOS 11/29/2016 MARISA BUI MD, Ot E11.9 TYPE 2 DIABETES MELLITUS WITHOUT COMPLIC 11/29/2016 MARISA BUI MD Ot E78.00 PURE HYPERCHOLESTEROLEMIA, UNSPECIFIED 11/29/2016 MARISA BUI MD Ot I10 ESSENTIAL (PRIMARY) HYPERTENSION 11/29/2016 MARISA BUI MD Ot K25.6 CHRONIC OR UNSP GASTRIC ULCER W BOTH HEM 11/29/2016 MARISA BUI MD Ot Z87.891 PERSONAL HISTORY OF NICOTINE DEPENDENCE 11/30/2016 MARISA BUI MD Ot E11.9 TYPE 2 DIABETES MELLITUS WITHOUT COMPLIC 11/30/2016 MARISA BUI MD Ot E78.00 PURE HYPERCHOLESTEROLEMIA, UNSPECIFIED 11/30/2016 MARIAS BUI MD Ot I10 ESSENTIAL (PRIMARY) HYPERTENSION 11/30/2016 MARISA BUI MD Ot K25.6 CHRONIC OR UNSP GASTRIC ULCER W BOTH HEM 11/30/2016 MARISA BUI MD Ot Z87.891 PERSONAL HISTORY OF NICOTINE DEPENDENCE 11/30/2016 MARISA BUI MD Ot D64.9 ANEMIA, UNSPECIFIED 11/30/2016 MARISA BUI MD Ot E11.65 TYPE 2 DIABETES MELLITUS WITH HYPERGLYCE 11/30/2016 MARISA BUI MD Ot E78.00 PURE HYPERCHOLESTEROLEMIA, UNSPECIFIED 11/30/2016 MARISA BUI MD Ot I10 ESSENTIAL (PRIMARY) HYPERTENSION 11/30/2016 MARISA BUI MD, Ot I95.9 HYPOTENSION, UNSPECIFIED 11/30/2016 MARISA BUI MD, Ot J90 PLEURAL EFFUSION, NOT ELSEWHERE CLASSIFI 11/30/2016 MARISA BUI MD, Ot K25.6 CHRONIC OR UNSP GASTRIC ULCER W BOTH HEM 11/30/2016 MARISA BUI MD, Ot 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 11/30/2016 MARISA BUI MD, Ot Z87.891 PERSONAL HISTORY OF NICOTINE DEPENDENCE Procedures Code Description Performed By Performed On 34MF38P INSERTION OF INFUSION DEV INTO SUP VENA 11/28/2016 Results Test Result Range Complete blood count (CBC) with automated white blood cell (WBC) differential - 11/28/16 12:23 Blood leukocytes automated count (number/volume) 24.2 10*3/ uL 4.3-11.0 Blood erythrocytes automated count (number/volume) 2.40 10*6 /uL 4.35-5.85 Venous blood hemoglobin measurement (mass/volume) 8.1 g/dL 13.3-17.7 Blood hematocrit (volume fraction) 24 % 40-54 Automated erythrocyte mean corpuscular volume 101 [foz_us] 80-99 Automated erythrocyte mean corpuscular hemoglobin (mass per erythrocyte) 34 pg 25-34 Automated erythrocyte mean corpuscular hemoglobin concentration measurement ( mass/volume) 33 g/dL 32-36 Automated erythrocyte distribution width ratio 12.6 % 10.0-14.5 Automated blood platelet count (count/volume) 462 10*3/uL 130-400 Automated blood platelet mean volume measurement 9.1 [foz_us ] 7.4-10.4 Automated blood neutrophils/100 leukocytes 77 % 42-75 Automated blood lymphocytes/100 leukocytes 13 % 12-44 Blood monocytes/100 leukocytes 10 % 0-12 Automated blood eosinophils/100 leukocytes 1 % 0-10 Automated blood basophils/100 leukocytes 0 % 0-10 Blood neutrophils automated count (number/volume) 18.6 10*3 1.8-7.8 Blood lymphocytes automated count (number/volume) 3.1 10*3 1.0-4.0 Blood monocytes automated count (number/volume) 2.3 10*3 0.0-1.0 Automated eosinophil count 0.2 10*3/uL 0.0-0.3 Automated blood basophil count (count/volume) 0.0 10*3/uL 0.0-0.1 RED CELLS LEUKO REDUCED AS1 - 11/28/16 12:23 RED CELLS LEUKO REDUCED AS1 NOT AVAILABLE NRG Blood type T Indirect antibody screen panel - 11/28/16 12:23 ABO+Rh group ON NRG Transfusion band number [id number] NRG Blood group antibody screen NEGATIVE NRG PT panel in platelet poor plasma by coagulation assay - 11/28/16 12:23 Prothrombin time (PT) in platelet poor plasma by coagulation assay 13.5 s 12.2-14.7 INR in platelet poor plasma or blood by coagulation assay 1.1 0.8-1.4 Activated partial thromboplastin time (aPTT) in platelet poor plasma bycoagulation assay - 11/28/16 12:23 Activated partial thromboplastin time (aPTT) in platelet poor plasma bycoagulation assay 28 s 24-35 Comprehensive metabolic panel - 11/28/16 12:23 Serum or plasma sodium measurement (moles/volume) 136 mmol/ L 135-145 Serum or plasma potassium measurement (moles/volume) 3.8 mmol/L 3.6-5.0 Serum or plasma chloride measurement (moles/volume) 103 mmol /L 98-107 Carbon dioxide 17 mmol/L 21-32 Serum or plasma anion gap determination (moles/volume) 16 mmol/L 5-14 Serum or plasma urea nitrogen measurement (mass/volume) 26 mg/dL 7-18 Serum or plasma creatinine measurement (mass/volume) 1.00 mg /dL 0.60-1.30 Serum or plasma urea nitrogen/creatinine mass ratio 26 NRG Serum or plasma creatinine measurement with calculation of estimated glomerular filtration rate > NRG Serum or plasma glucose measurement (mass/volume) 257 mg/dL 70-105 Serum or plasma calcium measurement (mass/volume) 8.9 mg/dL 8.5-10.1 Serum or plasma total bilirubin measurement (mass/volume) 0.4 mg/dL 0.1-1.0 Serum or plasma alkaline phosphatase measurement (enzymatic activity/volume) 72 U/L 40-136 Serum or plasma aspartate aminotransferase measurement (enzymatic activity/ volume) 32 U/L 5-34 Serum or plasma alanine aminotransferase measurement (enzymatic activity/volume ) 32 U/L 0-55 Serum or plasma protein measurement (mass/volume) 5.3 g/dL 6.4-8.2 Serum or plasma albumin measurement (mass/volume) 2.6 g/dL 3.2-4.5 Lipase - 11/28/16 12:23 Lipase 33 U/L 8-78 Blood manual differential performed detection - 11/28/16 12:23 Blood monocytes/100 leukocytes 8 % NRG Manual blood segmented neutrophils/100 leukocytes 76 % NRG Blood band neutrophils/100 leukocytes 6 % NRG Manual blood lymphocytes/100 leukocytes 10 % NRG Blood macrocytes detection by light microscopy SLIGHT NRG Capillary blood glucose measurement by glucometer (mass/volume) - 11/28/16 13: 34 Capillary blood glucose measurement by glucometer (mass/volume) 182 mg/dL 70-110 Complete urinalysis with reflex to culture - 11/28/16 13:47 Urine color determination YELLOW NRG Urine clarity determination CLEAR NRG Urine pH measurement by test strip 6 5- 9 Specific gravity of urine by test strip 1.010 1.016-1.022 Urine protein assay by test strip, semi-quantitative 2+ NEGATIVE Urine glucose detection by automated test strip 4+ NEGATIVE Erythrocytes detection in urine sediment by light microscopy NEGATIVE NEGATIVE Urine ketones detection by automated test strip NEGATIVE NEGATIVE Urine nitrite detection by test strip NEGATIVE NEGATIVE Urine total bilirubin detection by test strip NEGATIVE NEGATIVE Urine urobilinogen measurement by automated test strip (mass/volume) NORMAL NORMAL Urine leukocyte esterase detection by dipstick NEGATIVE NEGATIVE Automated urine sediment erythrocyte count by microscopy (number/high power field) NONE NRG Automated urine sediment leukocyte count by microscopy (number/high power field ) NONE NRG Bacteria detection in urine sediment by light microscopy NEGATIVE NRG Crystals detection in urine sediment by light microscopy NONE NRG Casts detection in urine sediment by light microscopy NONE NRG Mucus detection in urine sediment by light microscopy NEGATIVE NRG Complete urinalysis with reflex to culture NO NRG Whole blood hemoglobin and hematocrit panel - 11/28/16 18:47 Venous blood hemoglobin measurement (mass/volume) 9.0 g/dL 13.3-17.7 Blood hematocrit (volume fraction) 26 % 40-54 Capillary blood glucose measurement by glucometer (mass/volume) - 11/28/16 18: 47 Capillary blood glucose measurement by glucometer (mass/volume) 162 mg/dL 70-110 Serum ragweed IgE antibody assay - 11/28/16 18:47 Serum ragweed IgE antibody assay 1.1 % 0.0-5.0 CA 19-9 - 11/28/16 18:47 CA 19-9 C 8 u[iU]/mL 0-37 Whole blood hemoglobin and hematocrit panel - 11/29/16 00:35 Venous blood hemoglobin measurement (mass/volume) 8.0 g/dL 13.3-17.7 Blood hematocrit (volume fraction) 24 % 40-54 Capillary blood glucose measurement by glucometer (mass/volume) - 11/29/16 00: 36 Capillary blood glucose measurement by glucometer (mass/volume) 102 mg/dL 70-110 Complete blood count (CBC) with automated white blood cell (WBC) differential - 11/29/16 06:24 Blood leukocytes automated count (number/volume) 14.0 10*3/ uL 4.3-11.0 Blood erythrocytes automated count (number/volume) 3.17 10*6 /uL 4.35-5.85 Venous blood hemoglobin measurement (mass/volume) 10.3 g/dL 13.3-17.7 Blood hematocrit (volume fraction) 30 % 40-54 Automated erythrocyte mean corpuscular volume 95 [foz_us] 80-99 Automated erythrocyte mean corpuscular hemoglobin (mass per erythrocyte) 32 pg 25-34 Automated erythrocyte mean corpuscular hemoglobin concentration measurement ( mass/volume) 34 g/dL 32-36 Automated erythrocyte distribution width ratio 14.2 % 10.0-14.5 Automated blood platelet count (count/volume) 355 10*3/uL 130-400 Automated blood platelet mean volume measurement 9.1 [foz_us ] 7.4-10.4 Automated blood neutrophils/100 leukocytes 66 % 42-75 Automated blood lymphocytes/100 leukocytes 14 % 12-44 Blood monocytes/100 leukocytes 18 % 0-12 Automated blood eosinophils/100 leukocytes 2 % 0-10 Automated blood basophils/100 leukocytes 0 % 0-10 Blood neutrophils automated count (number/volume) 9.2 10*3 1.8-7.8 Blood lymphocytes automated count (number/volume) 2.0 10*3 1.0-4.0 Blood monocytes automated count (number/volume) 2.5 10*3 0.0-1.0 Automated eosinophil count 0.2 10*3/uL 0.0-0.3 Automated blood basophil count (count/volume) 0.1 10*3/uL 0.0-0.1 Blood lactic acid measurement (moles/volume) - 11/29/16 06:24 Blood lactic acid measurement (moles/volume) 0.73 mmol/L 0.50-2.00 Comprehensive metabolic panel - 11/29/16 06:24 Serum or plasma sodium measurement (moles/volume) 136 mmol/ L 135-145 Serum or plasma potassium measurement (moles/volume) 4.3 mmol/L 3.6-5.0 Serum or plasma chloride measurement (moles/volume) 105 mmol /L 98-107 Carbon dioxide 23 mmol/L 21-32 Serum or plasma anion gap determination (moles/volume) 8 mmol/L 5-14 Serum or plasma urea nitrogen measurement (mass/volume) 36 mg/dL 7-18 Serum or plasma creatinine measurement (mass/volume) 0.75 mg /dL 0.60-1.30 Serum or plasma urea nitrogen/creatinine mass ratio 48 NRG Serum or plasma creatinine measurement with calculation of estimated glomerular filtration rate > NRG Serum or plasma glucose measurement (mass/volume) 132 mg/dL 70-105 Serum or plasma calcium measurement (mass/volume) 8.2 mg/dL 8.5-10.1 Serum or plasma total bilirubin measurement (mass/volume) 0.9 mg/dL 0.1-1.0 Serum or plasma alkaline phosphatase measurement (enzymatic activity/volume) 50 U/L 40-136 Serum or plasma aspartate aminotransferase measurement (enzymatic activity/ volume) 28 U/L 5-34 Serum or plasma alanine aminotransferase measurement (enzymatic activity/volume ) 27 U/L 0-55 Serum or plasma protein measurement (mass/volume) 5.3 g/dL 6.4-8.2 Serum or plasma albumin measurement (mass/volume) 2.6 g/dL 3.2-4.5 Serum or plasma phosphate measurement (mass/volume) - 11/29/16 06:24 Serum or plasma phosphate measurement (mass/volume) 2.5 mg/ dL 2.3-4.7 Magnesium - 11/29/16 06:24 Magnesium 1.3 mg/dL 1.8-2.4 Capillary blood glucose measurement by glucometer (mass/volume) - 11/29/16 11: 42 Capillary blood glucose measurement by glucometer (mass/volume) 273 mg/dL 70-110 Whole blood hemoglobin and hematocrit panel - 11/29/16 12:40 Venous blood hemoglobin measurement (mass/volume) 10.1 g/dL 13.3-17.7 Blood hematocrit (volume fraction) 29 % 40-54 Capillary blood glucose measurement by glucometer (mass/volume) - 11/29/16 16: 33 Capillary blood glucose measurement by glucometer (mass/volume) 170 mg/dL 70-110 Capillary blood glucose measurement by glucometer (mass/volume) - 11/29/16 20: 03 Capillary blood glucose measurement by glucometer (mass/volume) 136 mg/dL 70-110 Whole blood hemoglobin and hematocrit panel - 11/30/16 00:35 Venous blood hemoglobin measurement (mass/volume) 10.0 g/dL 13.3-17.7 Blood hematocrit (volume fraction) 29 % 40-54 Capillary blood glucose measurement by glucometer (mass/volume) - 11/30/16 05: 15 Capillary blood glucose measurement by glucometer (mass/volume) 142 mg/dL 70-110 Whole blood hemoglobin and hematocrit panel - 11/30/16 08:22 Venous blood hemoglobin measurement (mass/volume) 10.2 g/dL 13.3-17.7 Blood hematocrit (volume fraction) 30 % 40-54 Blood lactic acid measurement (moles/volume) - 11/30/16 08:53 Blood lactic acid measurement (moles/volume) 0.75 mmol/L 0.50-2.00 Bacterial blood culture - 11/30/16 08:59 Bacterial blood culture NG NRG Complete urinalysis with reflex to culture - 11/30/16 09:35 Urine color determination YELLOW NRG Urine clarity determination CLEAR NRG Urine pH measurement by test strip 6.5 5 -9 Specific gravity of urine by test strip 1.010 1.016-1.022 Urine protein assay by test strip, semi-quantitative NEGATIVE NEGATIVE Urine glucose detection by automated test strip 4+ NEGATIVE Erythrocytes detection in urine sediment by light microscopy NEGATIVE NEGATIVE Urine ketones detection by automated test strip NEGATIVE NEGATIVE Urine nitrite detection by test strip NEGATIVE NEGATIVE Urine total bilirubin detection by test strip NEGATIVE NEGATIVE Urine urobilinogen measurement by automated test strip (mass/volume) 1 mg/dL NORMAL Urine leukocyte esterase detection by dipstick NEGATIVE NEGATIVE Automated urine sediment erythrocyte count by microscopy (number/high power field) NONE NRG Automated urine sediment leukocyte count by microscopy (number/high power field ) NONE NRG Bacteria detection in urine sediment by light microscopy NEGATIVE NRG Squamous epithelial cells detection in urine sediment by light microscopy RARE NRG Crystals detection in urine sediment by light microscopy NONE NRG Casts detection in urine sediment by light microscopy NONE NRG Mucus detection in urine sediment by light microscopy NEGATIVE NRG Complete urinalysis with reflex to culture NO NRG Bacterial blood culture - 11/30/16 10:37 Bacterial blood culture NG NRG Capillary blood glucose measurement by glucometer (mass/volume) - 11/30/16 10: 56 Capillary blood glucose measurement by glucometer (mass/volume) 141 mg/dL 70-110 Encounters ACCT No. Visit Date/Time Discharge Status Pt. Type Provider Facility Loc./Unit Complaint [id number] 11/28/2016 12:38:00 2016 14:00:00 DIS Inpatient MARISA BUI MD [facility] 4TH UGIB,HYPOTENSION,H/O GASTRIC ULCERS, SYNCOPAL EPISO [id number] 10/12/2012 12:32:00 2012 23:59:59 CLS Outpatient RENAE DURHAM MD [facility] RAD INFLAMMATORY,ARTHRITIS [id number] 12/30/2016 10:30:00 PEN Preadmit TONY GARCIA [facility] ONC [id number] 07/03/2012 12:10:00 Document Registration [id number] 06/30/2012 11:49:00 Document Registration
--- OUTSIDE RECORDS SUMMARY | 2016-12-09 08:56 | XMS REPORT | Continuity of Care Document ---
Author Author [facility] Organization [facility] Address Unknown Phone Unavailable Allergies Active Description Code Type Severity Reaction Onset Reported/Identified Relationship to Patient Clinical Status Yes No Known Drug Allergies [id number] Drug Allergy Unknown N/ A 11/28/2016 Medications Problems Date Dx Coded Attending Type Code Diagnosis Diagnosed By 11/28/2016 Ot 784.2 SWELLING IN HEAD NECK 11/28/2016 Ot 784.2 SWELLING IN HEAD NECK 11/28/2016 HERMINIO BUI, RENAE Copeland Ot 714.9 INFLAMM POLYARTHROP NOS [...] HEM 11/30/2016 MARISA BUI MD, Ot Z79.4 [employer] (CURRENT) USE OF INSULIN 11/30/2016 MARISA BUI MD, Ot Z87.891 PERSONAL HISTORY OF NICOTINE DEPENDENCE Procedures Code Description Performed By Performed On [id number] INSERTION OF INFUSION DEV INTO SUP VENA [...] ABO+Rh group ON NRG Transfusion band number [id number] NRG Blood group antibody screen NEGATIVE NRG [...] Status Pt. Type Provider Facility Loc./Unit Complaint [id number] 11/28/2016 12:38:00 2016 14:00:00 DIS Inpatient MARISA UBI MD [facility] 4TH UGIB,HYPOTENSION,H/O GASTRIC ULCERS, SYNCOPAL EPISO [id number] 10/12/2012 12:32:00 2012 23:59:59 CLS Outpatient RENAE DURHAM MD [facility] RAD INFLAMMATORY,ARTHRITIS [id number] 12/30/2016 10:30:00 PEN Preadmit TONY GARCIA [facility] ONC [id number] 07/03/2012 12:10:00 Document Registration [id number] 06/30/2012 11:49:00 Document Registration
== END 2016-11-30 14:00 | disposition home or self-care (01) | DRG 378 ==
LOC: EDUNIT# 11:41 → ER 11:42 → ICU 12:38 → 4TH 11-29 19:00
PROVIDERS: ADMIT Surgery; ATTEND Surgery
PROC: 02HV33Z Insertion of Infusion Device into Superior Vena Cava, Percutaneous Approach (ICD-10-PCS; principal; 2016-11-28)
DX: K25.6 Chronic or unspecified gastric ulcer with both hemorrhage and perforation (principal); J90 Pleural effusion, not elsewhere classified; E11.65 Type 2 diabetes mellitus with hyperglycemia; I10 Essential (primary) hypertension; E78.00 Pure hypercholesterolemia, unspecified; Z87.891 Personal history of nicotine dependence; D64.9 Anemia, unspecified; I95.9 Hypotension, unspecified; Z79.4 Long term (current) use of insulin
CPT/HCPCS: 36415; 71010; 74177; 80053; 81000; 82378; 82962; 83605; 83690; 83735; 84100; 85007; 85014; 85018; 85025; 85027; 85610; 85730; 86301; 86850; 86900; 86901; 86920; 87040; 93005; 93041; 96361; 96374; 96375